=== PATIENT | female | born 1980 | race Caucasian/White ===

== ENCOUNTER 2024-02-27 16:38 | Emergency (ER) | payer OTHER, SELFPAY ==
[2024-02-27 16:39] VITALS: BP 260/136
[2024-02-27 17:12] VITALS: BMI 44.5
--- NOTE | 2024-02-27 17:12 | ED.GENMED ---
History of Present Illness
General
Chief Complaint: Blood Pressure Problem
Time Seen by Provider: 02/27/24 17:10
Travel History
Have you had any contact with someone who has COVID-19?: No
Do you have any symptoms of coronavirus? Fever > 100 degrees, chills, cough, shortness of breath, sore throat, loss of taste or smell, muscle aches, or headache?: No
History of Present Illness
History of Present Illness:
HPI: Patient presents due to concerns for high blood pressure from urgent care. She went to urgent care because of concerns for URI/LRI symptoms. She had been taking NyQuil and DayQuil. Otherwise she has no symptoms�no headache, no chest pain.
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
EXAM:
GENERAL: Well appearing in no distress, I personally performed a manual blood pressure was 240/120
HEENT: Moist oral mucosa
CARDIOVASCULAR: No murmurs, normal heart rate, regular rhythm, No chest wall tenderness
PULMONARY: No respiratory distress, breath sounds are clear and equal
ABDOMEN: Soft with no peritoneal signs, no tenderness
NEUROLOGIC: Excellent strength all extremities, no coordination deficits
PSYCHIATRIC: Appropriate mental status, normal insight and judgement
EXTREMITIES: Nontender, no edema, moves all extremities equally
SKIN: No rash, no lesions
TIME OF INITIAL ENCOUNTER: 5:15 PM
NUMBER AND COMPLEXITY OF PROBLEMS ADDRESSED AT THE ENCOUNTER
� Chronic conditions affecting care: Denies any significant past medical history
� Acute Exacerbation and/or Progression of Chronic Illness: This is an acute problem
� Differential Diagnosis includes: Undiagnosed high blood pressure, medication induced high blood pressure, anxiety induced high blood pressure�likely combination of all 3
AMOUNT AND/OR COMPLEXITY OF DATA TO BE REVIEWED AND ANALYZED
� I performed an independent evaluation of and my interpretation is:
EKG: Sinus 124, nonspecific ST abnormality
CT:
X-rays:
Laboratory Studies: White count 17.6, hemoglobin 11.8, BUN 18, creatinine normal, potassium hemolyzed
Other:
� Review of other/old records: No old records available for review in [facility]
� Clinical information was obtained by an independent historian: Spoke to the daughter at bedside
� Prescriptions/Medications Considered but not given:
� Further testing considered but not performed: Considered admission to the hospital however the patient feels very comfortable with outpatient management as she has no significant symptoms
RISK OF COMPLICATIONS AND/OR MORBIDITY OR MORTALITY OF PATIENT MANAGEMENT
� Social determinants of health affecting care: Lives at home
� Discussion with other providers:
� Escalation of care including admission/observation vs risk of discharge considered: The patient did take Flonase recently and has URI type symptoms which may be contributing to the mild leukocytosis. However she has otherwise
no concerning symptoms. She prefers outpatient management I feel is reasonable. Will start losartan as an outpatient. She never had any chest pain, headache, shortness of breath, and has no neurologic symptoms. On reassessment at around 2:20 PM,
the patient's blood pressure is somewhat improved. I suspect that she has undiagnosed high blood pressure, is under a lot of stress which is a contributing factor, is somewhat overweight, and has been on pseudoephedrine recently also contributing
to the high blood pressure.
�
Phy Exam
Physical Exam
Physical Exam:
See HPI
Course
Orders/Labs/Results
Orders:
Orders
02/27/24 16:40
Electrocardiogram (*1) Urgent
Reason for Study: Tachycardia
EKG- Treatment ONCE
02/27/24 16:42
Test Result ONCE
02/27/24 17:19
Labetalol HCl [Trandate] 10 mg IV NOW STA
Losartan [Cozaar] 50 mg PO NOW STA
02/27/24 17:24
Basic Metabolic Panel Urgent
Complete Blood Count/With Diff Urgent
Abnormal Lab Results
02/27/24
17:24
WBC 17.6 H 10^3/uL
(4.8-10.8)
Hgb 11.8 L g/dL
(12.0-16.0)
MCV 74.2 L fL
(81.0-99.0)
MCH 23.5 L pg
(27.0-31.0)
MCHC 31.6 L g/dL
(33.0-37.0)
RDW 17.2 H %
(11.5-14.5)
Abs Immat Gran (auto) 0.3 H 10^3/uL
(0-0.05)
Absolute Neuts (auto) 12.1 H 10^3/uL
(1.4-6.5)
Absolute Lymphs (auto) 3.5 H 10^3/uL
(1.2-3.4)
Absolute Monos (auto) 1.3 H 10^3/uL
(0.1-0.6)
Immature Gran % 1.9 H %
(0-0.5)
Lymphocytes % 19.9 L %
(20.5-51.1)
BUN 18 H mg/dl
(7-17)
Glucose 119 H mg/dl
(70-99)
02/27/24 17:24
02/27/24 17:40
Vital Signs
Initial and Last Documented VS:
Initial Vital Signs
Temp Pulse Resp BP Pulse Ox
99.8 F 133 20 260/136 97
02/27/24 16:39 02/27/24 16:39 02/27/24 16:39 02/27/24 16:39 02/27/24 16:39
Last Documented Vital Signs
Temp Pulse Resp BP Pulse Ox
99.8 F 97 21 207/117 96
02/27/24 16:39 02/27/24 19:15 02/27/24 19:15 02/27/24 19:00 02/27/24 19:15
*Critical Care Note
Total Time (30-74mins, 75-104mins- exclusive of procedures): Not Applicable
ED Attending Note
-
Portions of this chart may have been created with voice recognition software.� Occasional wrong word or��sound alike� substitutions may have occurred due to the inherent limitations of voice recognition software.
Discharge Plan
Departure
Patient Disposition: Home (Routine Discharge)
Date of Disposition: 02/27/24
Time of Disposition: 19:26
Patient with high blood pressure during this ER visit?: Yes
Discharge Problem:
High blood pressure
Instructions: High Blood Pressure (DC), BLOOD PRESSURE
Prescriptions:
New
losartan 50 mg tablet
50 mg PO DAILY Qty: 30 0RF
Referrals:
UNKNOWN - PT DOES,NOT KNOW [Family Provider] -
Activity Restrictions/Additional Instructions:
Other than a high white blood cell count, the basic labs are normal. I recommend that you follow-up with your primary care doctor for reassessment this week. I sent a prescription for losartan to your pharmacy. We will start at 50 mg/day however
if over the next several days your blood pressure still remains elevated, double the dose to 100 mg (2 pills at the same time each morning).
Interventions
Interventions:
*Risk Screen - Suicide Last Done: 02/27/24 17:13
*General Assessment Last Done: 02/27/24 17:13
*Neglect/Abuse Screening Last Done: 02/27/24 17:13
*ED COVID-19 Vaccine History Last Done: 02/27/24 17:13
ED- Cardiac Assessment Last Done: 02/27/24 17:23
ED- Neurological Assessment Last Done: 02/27/24 17:22
ED- Pulmonary Assessment Last Done: 02/27/24 17:22
Discharge Date and Time
Print Language: WELSH
[2024-02-27] MEDS: COZAAR 50 MG PO (17:28)
[2024-02-27] MEDS: TRANDATE 10 MG IV (17:29)
[2024-02-27 17:30] LABS: % Basophils 0.5 % (0-2); % Eosinophils 1.5 % (0-6); % Immature Granulocytes 1.9 % (0-0.5); % Lymphocytes 19.9 % (20.5-51.1); % Monocytes 7.4 % (1.7-9.3); % Neutrophils 68.8 % (42.2-75.2); Absolute Basophils 0.1 10^3/uL (0-0.2); Absolute Eosinophils 0.3 10^3/uL (0-0.7); Absolute Immature Granulocytes 0.3 10^3/uL (0-0.05); Absolute Lymphocytes 3.5 10^3/uL (1.2-3.4); Absolute Monocytes 1.3 10^3/uL (0.1-0.6); Absolute Neutrophils 12.1 10^3/uL (1.4-6.5); Hematocrit 37.3 % (37.0-47.0); Hemoglobin 11.8 g/dL (12.0-16.0); Mean Corp Hgb Conc. 31.6 g/dL (33.0-37.0); Mean Corpuscular Hgb 23.5 pg (27.0-31.0); Mean Corpuscular Volume 74.2 fL (81.0-99.0); Mean Platelet Volume 9.7 fL (7.4-10.4); Nucleated Red Blood Cells % 0.1 %; Platelet Count 389 10^3/uL (130-400); Red Blood Cell Count 5.03 10^6/uL (4.20-5.40); Red Cell Dist. Width 17.2 % (11.5-14.5); White Blood Cell Count 17.6 10^3/uL (4.8-10.8)
[2024-02-27 18:00] VITALS: BP 198/112
[2024-02-27 18:19] LABS: Blood Urea Nitrogen 18 mg/dl (7-17); Calcium 9.3 mg/dl (8.4-10.2); Carbon Dioxide 23 mmol/L (22-30); Chloride 100 mmol/L (98-107); Estimated Creatinine Clearance 123 ml/min; Glucose 119 mg/dl (70-99); Sodium 136 mmol/L (135-145); eGFR > 60.00
[2024-02-27 18:30] VITALS: BP 204/116
[2024-02-27 19:00] VITALS: BP 207/117
[2024-02-27 19:30] VITALS: BP 209/125
[2024-02-27 20:00] VITALS: BP 200/111
== END 2024-02-27 20:21 | disposition home or self-care (01) ==
LOC: EMR 16:38
PROVIDERS: EMERGENCY PHYSICIAN Emergency Medicine
DX: R03.0 Elevated blood-pressure reading, without diagnosis of hypertension (principal)
CPT/HCPCS: 99283; 96374; 80048; 85025; 93005